=== PATIENT | male | born 1970 | race Caucasian/White ===

== ENCOUNTER 2018-09-18 05:00 | Emergency (ER) | payer MEDICAID ==
[~2018-09-18] VITALS: Ht 172.7 cm; Wt 113.4 kg
--- NOTE | 2018-09-18 05:01 | NUR ---
BIBA (BLS) TO ER BED 8
--- NOTE | 2018-09-18 05:01 | NUR ---
Jorge L willoughby in [facility] - 09/18/18 at 0504 by MEDDM MISSY (ELISEO) TO ER BED 8
--- NOTE | 2018-09-18 05:04 | NUR ---
48 YO MALE BIBA FOR ANXIETY ATTACK. PT STATES HE IS A [employer] AND HAS BEEN ANXIOUS X 3 DAYS. PT STATES HE HAS BEEN DRINKING TO LOWER ANXIETY LEVEL. PT NON COMPLIANT WITH MEDICATION FOR PAST 6 MONTHS. PT AAOX4, FOLLOWING COMMANDS. DENIES LUDWIG/FEVER/CHILLS. DENIES CP/SOB. DENIES N/V/D. GURNEY LOCKED IN LOWEST POSITION. WILL UPDATE ERMD. HX: HTN, ANXIETY MED HX: LISINOPRIL, LORAZEPAM ALLERGIES: DENIES
[2018-09-18 05:07] VITALS: BP 148/99
[2018-09-18] MEDS ORDERED: LORazepam 1 MG TAB PO ONE (05:20)
--- NOTE | 2018-09-18 06:40 | NUR ---
PT HAS EYES CLOSED; AROUSABLE. C/O 08/28 DULL BACK PAIN. PT STATES ANXIETY LEVEL DECREASED AFTER MEDICATED WITH ATIVAN PO. WILL UPDATE ERMD.
[2018-09-18] MEDS ORDERED: ACETAMINOPHEN EXTRA STRENGTH 500 MG TAB PO ONE (06:45)
[2018-09-18] MEDS ORDERED: NACL 0.9% 1,000 ML IV ONE (06:55)
[2018-09-18] MEDS ORDERED: LORazepam 2 MG/ML VIAL IVP ONE (06:55)
--- NOTE | 2018-09-18 07:15 | NUR ---
RECEIVED REPORT FROM SAVANNA SUAREZ; RESUMING CARE AT THIS TIME. PT AWAKE, ALERT AND ORIENTED. VERBALIZED FEELING "BETTER". WILL CONTINUE TO MONITOR.
--- NOTE | 2018-09-18 07:35 | NUR ---
URINE SAMPLE COLLECTED; SENT TO LAB WITH KAILASH KOEHLER TECH.
--- NOTE | 2018-09-18 08:00 | NUR ---
Patient appears to be resting comfortably in bed. Vital Signs within normal limits. Respirations even and unlabored.
[2018-09-18 08:08] LABS: BILIRUBIN,URINE NEGATIVE (NEGATIVE); BLOOD, URINE 3+ (NEGATIVE); COLOR,URINE YELLOW (YELLOW); LEUKOCYTE ESTERASE ,URINE NEGATIVE (NEGATIVE); NITRITE, URINE NEGATIVE (NEGATIVE); UGLUCOSE NEGATIVE (NEGATIVE)
[2018-09-18 08:14] LABS: APPEARANCE,URINE SLIGHTLY HAZY (CLEAR)
[2018-09-18 08:16] LABS: RBC,URINE 11-20 (MOD) /HPF (0-5); WBC,URINE 0-5 /HPF (0-5)
[2018-09-18 08:25] VITALS: BP 138/88
--- NOTE | 2018-09-18 08:26 | NUR ---
Patient discharged with v/s stable. Written and verbal after care instructions given and explained. Patient verbalized understanding. Ambulatory with steady gait. All questions addressed prior to discharge. Advised to follow up with PMD.
== END 2018-09-18 08:26 | disposition home or self-care (01) ==
LOC: MED 05:00
DX: E86.0 Dehydration (principal); M54.9 Dorsalgia, unspecified; F41.9 Anxiety disorder, unspecified; I10 Essential (primary) hypertension
CPT/HCPCS: 81001; 96361; 96374; 99283; J2060; J7030